=== PATIENT | male | born 1995 | race African-American/Black ===

== ENCOUNTER 2024-09-05 17:25 | Emergency (ER) | payer OTHER ==
[~2024-09-05] VITALS: Ht 180.3 cm; Wt 124.7 kg
[2024-09-05] MEDS ORDERED: Bacitracin Zinc Oint 1GRAM UD Packet TOP ONE (17:55)
[2024-09-05] MEDS ORDERED: ACET500 PO (17:59)
== END 2024-09-05 18:30 | disposition home or self-care (01) ==
LOC: ER 17:25
DX: T24.211A Burn of second degree of right thigh, initial encounter (principal); T21.22XA Burn of second degree of abdominal wall, initial encounter; X16.XXXA Contact with hot heating appliances, radiators and pipes, initial encounter; Z88.8 Allergy status to other drugs, medicaments and biological substances
CPT/HCPCS: 99282; A9270